=== PATIENT | female | born 1940 | race African-American/Black ===

== ENCOUNTER 2019-03-19 11:42 | Emergency (ER) | payer MEDICARE ==
[~2019-03-19] VITALS: Ht 170.2 cm; Wt 159.0 kg
[~2019-03-19 11:42] MED LIST: ASPI-1393 PO; HYDR-4009 PO; LORA0.5T2 PO
[2019-03-19] MEDS ORDERED: ONDANSETRON HCL 4MG/2ML INJ IV STA (14:57)
[2019-03-19] MEDS ORDERED: KETOROLAC 30MG/ML VIAL IV STA (14:57)
[2019-03-19] MEDS ORDERED: SODIUM CHLORIDE 0.9% 1,000 ML IV ONE (14:57)
[2019-03-19] MEDS ORDERED: FAMOTIDINE 20MG/2ML VIAL IV ONE (15:00)
[2019-03-19 16:28] LABS: CHLORIDE 109 mEq/L (98-107); PROTHROMBIN TIME 10.8 sec (9.6-11.0)
[2019-03-19 16:35] LABS: ETHANOL BLOOD < 10 mg/dL
[2019-03-19 16:36] LABS: CLARITY URINE TURBID (CLEAR); COLOR URINE DARK YELLOW (YELLOW); KETONES URINE 1+ (NEGATIVE); LEUKOCYTE ESTERASE URINE NEGATIVE (NEGATIVE); NITRITE URINE NEGATIVE (NEGATIVE); OCCULT BLOOD URINE 3+ (NEGATIVE); PROTEIN URINE 2+ (NEGATIVE); SPECIFIC GRAVITY URINE 1.025 (1.005-1.030)
[2019-03-19 16:47] LABS: BASOPHILS % 0.4 % (0.0-2.0); EOSINOPHILS % 0.1 % (0.0-5.0); HEMATOCRIT. 44.5 % (36.0-48.0); HEMOGLOBIN. 14.5 g/dL (12.0-16.0); MEAN CORPUSCULAR HEMOGLOBIN 29.3 pg (28.0-32.0); MEAN CORPUSCULAR VOLUME 90.3 fL (81.0-99.0); MEAN PLATELET VOLUME 8.1 fl (7.4-10.4); MONOCYTES % 5.1 % (2.0-8.0); NEUTROPHILS % 80.4 % (40.0-76.0); PLATELET 248 x1000/uL (130-400); RED BLOOD CELL COUNT 4.92 mill/uL (4.2-5.4); RED CELL DISTRIBUTION WIDTH 13.9 % (11.6-14.6)
[2019-03-19 16:49] LABS: *AMPHETAMINES SCREEN URINE NEGATIVE (NEGATIVE); *BARBITURATES SCREEN URINE NEGATIVE (NEGATIVE); *BENZODIAZEPINES SCREEN URINE NEGATIVE (NEGATIVE); *COCAINE SCREEN URINE NEGATIVE (NEGATIVE); METHADONE URINE SCREEN NEGATIVE (NEGATIVE); OPIATES URINE SCREEN NEGATIVE (NEGATIVE)
[2019-03-19 16:50] LABS: CANNABINOID URINE SCREEN NEGATIVE (NEGATIVE); PHENCYCLIDINE URINE SCREEN NEGATIVE (NEGATIVE)
[2019-03-19 19:30] VITALS: BP 159/63
== END 2019-03-20 02:16 | disposition home or self-care (01) ==
LOC: ER 11:42
DX: R11.2 Nausea with vomiting, unspecified (principal); R19.7 Diarrhea, unspecified
CPT/HCPCS: 36415; 80053; 80305; 80320; 81003; 85025; 85610; 96361; 96374; 96375; 99283; J1885; J2405; J3490; J7030; G0480

== ENCOUNTER 2024-03-03 02:56 | Inpatient (IN) | payer MEDICARE ==
[~2024-03-03] VITALS: Ht 167.6 cm; Wt 91.6 kg
[~2024-03-03 02:56] MED LIST changes: -ASPI-1393 PO; +ASPI-1497 PO
[2024-03-03 06:16] LABS: BASOPHILS % 0.7 % (0.0-2.0); EOSINOPHILS % 0.9 % (0.0-5.0); HEMATOCRIT. 43.1 % (36.0-48.0); HEMOGLOBIN. 13.7 g/dL (12.0-16.0); LYMPHOCYTES % 22.2 % (20.0-50.0); MEAN CORPUSCULAR HEMOGLOBIN 29.6 pg (28.0-32.0); MEAN CORPUSCULAR HGB CONC 31.9 g/dL (31.0-37.0); MEAN PLATELET VOLUME 8.2 fl (7.4-10.4); MONOCYTES % 9.1 % (2.0-8.0); NEUTROPHILS % 67.1 % (40.0-76.0); PLATELET 234 x1000/uL (130-400); RED BLOOD CELL COUNT 4.64 mill/uL (4.2-5.4); RED CELL DISTRIBUTION WIDTH 14.9 % (11.6-14.6); WHITE BLOOD COUNT 6.5 x1000/uL (4.5-11.0)
[2024-03-03 06:35] LABS: CHLORIDE 110 mEq/L (98-107); POTASSIUM 4.1 mEq/L (3.5-5.1)
[2024-03-03 06:36] LABS: CARBON DIOXIDE 27 mEq/L (21-32); SODIUM 146 mEq/L (136-145)
[2024-03-03 06:37] LABS: CALCIUM 10.6 mg/dL (8.7-10.4)
[2024-03-03 06:42] LABS: CREATININE 0.4 mg/dL (0.6-1.0); GLUCOSE 99 mg/dL (70-105); UREA NITROGEN BLOOD 14 mg/dL (9-23)
[2024-03-03 06:43] LABS: AMMONIA < 17 uMol/L (<32)
[2024-03-03 06:44] LABS: ACETAMINOPHEN < 2 ug/mL (10-30)
[2024-03-03 07:42] LABS: ETHANOL BLOOD < 10 mg/dL (<10)
[2024-03-03 07:43] LABS: TROPONIN I HIGH SENSITIVITY 75 ng/L (3.0-34)
[2024-03-03] MEDS ORDERED: ACETAMINOPHEN 650MG/20.3ML UDC GT PRN (08:45)
[2024-03-03] MEDS ORDERED: LORAZEPAM 2MG/ML INJ IV PRN (08:45)
[2024-03-03] MEDS ORDERED: GUAIFENESIN 200MG/10ML SUGAR FREE UDC PO PRN (08:45)
[2024-03-03] MEDS ORDERED: DOCUSATE SODIUM 100MG CAPSULE PO PRN (08:45)
[2024-03-03] MEDS ORDERED: MAGNESIUM/ALUMINUM HYDROXIDE/SIMETHICONE 30ML UDC PO PRN (08:45)
[2024-03-03] MEDS ORDERED: IPRATROPIUM/ALBUTEROL 0.5-3(2.5)MG/3ML NEB HHN PRN (08:45)
[2024-03-03] MEDS ORDERED: ACETAMINOPHEN 325MG TABLET PO PRN (08:45)
[2024-03-03 08:50] VITALS: BP 144/78; PULSE 94; RESP 18; TEMP 35.2504
[2024-03-03] MEDS: THIAMINE HCL 100MG TABLET PO SCH (09:00)
[2024-03-03] MEDS: AMLODIPINE 5MG TABLET PO SCH (09:00)
[2024-03-03] MEDS: FOLIC ACID 1MG TABLET PO SCH (09:00)
[2024-03-03] MEDS ORDERED: HYDRALAZINE 20MG/ML VIAL IV PRN (10:30)
[2024-03-03] MEDS ORDERED: HYDRALAZINE 10 MG in SODIUM CHLORIDE 0.9% 49.5 ML IV PRN (10:30)
[2024-03-03 12:00] VITALS: BP 110/53; PULSE 86; RESP 19; TEMP 36.114; O2SAT 97
[2024-03-03] MEDS: SODIUM CHLORIDE 0.9% 1,000 ML IV SCH (12:21)
[2024-03-03] MEDS: ENOXAPARIN 40MG/0.4ML SYR SUBCUT SCH (12:25)
[2024-03-03 12:30] LABS: ALBUMIN 3.7 g/dL (3.2-4.8)
[2024-03-03] MEDS: HALOPERIDOL LACTATE 5MG/ML VIAL IM PRN (13:27)
[2024-03-03 13:44] LABS: VITAMIN B12 SERUM 336 pg/mL (211-911)
[2024-03-03 16:00] VITALS: BP 100/39; PULSE 83; RESP 19; TEMP 36.22512; O2SAT 100
[2024-03-03] MEDS: FAMOTIDINE 20MG/2ML VIAL IV SCH (17:14)
[2024-03-03 18:35] LABS: CREATINE KINASE 82 IU/L (34-145); PHOSPHORUS 2.8 mg/dL (2.5-4.9)
[2024-03-03 18:59] LABS: TROPONIN I HIGH SENSITIVITY 75 ng/L (3.0-34)
[2024-03-04] VITALS: BP 95/51; PULSE 102; RESP 18; TEMP 35.61396; O2SAT 99
[2024-03-04 02:59] LABS: CREATINE KINASE 81 IU/L (34-145)
[2024-03-04 03:08] LABS: TROPONIN I HIGH SENSITIVITY 48 ng/L (3.0-34)
[2024-03-04 08:00] VITALS: BP 133/34; PULSE 88; RESP 17; TEMP 36.3918; O2SAT 98
[2024-03-04 08:30] LABS: CALCIUM 9.9 mg/dL (8.7-10.4); CHLORIDE 112 mEq/L (98-107); POTASSIUM 4.1 mEq/L (3.5-5.1); SODIUM 146 mEq/L (136-145)
[2024-03-04 08:31] LABS: CARBON DIOXIDE 24 mEq/L (21-32)
[2024-03-04 08:36] LABS: BASOPHILS % 1.1 % (0.0-2.0); CREATININE 0.3 mg/dL (0.6-1.0); EOSINOPHILS % 1.8 % (0.0-5.0); GLUCOSE 80 mg/dL (70-105); HEMATOCRIT. 39.4 % (36.0-48.0); HEMOGLOBIN. 12.6 g/dL (12.0-16.0); LYMPHOCYTES % 29.7 % (20.0-50.0); MEAN CORPUSCULAR HEMOGLOBIN 29.8 pg (28.0-32.0); MEAN CORPUSCULAR HGB CONC 32.1 g/dL (31.0-37.0); MEAN PLATELET VOLUME 8.5 fl (7.4-10.4); MONOCYTES % 11.1 % (2.0-8.0); NEUTROPHILS % 56.3 % (40.0-76.0); PLATELET 247 x1000/uL (130-400); RED BLOOD CELL COUNT 4.24 mill/uL (4.2-5.4); RED CELL DISTRIBUTION WIDTH 15.2 % (11.6-14.6); TRIGLYCERIDE 97 mg/dL (0-150); UREA NITROGEN BLOOD 12 mg/dL (9-23); WHITE BLOOD COUNT 6.7 x1000/uL (4.5-11.0)
[2024-03-04 08:37] LABS: LDL CHOLESTEROL 124 mg/dL (5-100)
[2024-03-04 08:38] LABS: CHOLESTEROL 184 mg/dL (<200); HDL CHOLESTEROL 39 mg/dL (>65)
[2024-03-04 08:42] LABS: THYROID STIMULATING HORMONE 3.16 uIU/mL (0.55-4.78)
[2024-03-04] MEDS ORDERED: SODIUM CHLORIDE 0.45% 1,000 ML IV SCH (09:00)
[2024-03-04 09:18] LABS: TROPONIN I HIGH SENSITIVITY 55 ng/L (3.0-34)
[2024-03-04 12:00] VITALS: BP 138/61; PULSE 89; RESP 18; TEMP 35.89176; O2SAT 98
[2024-03-04] MEDS: ASPIRIN 81MG TABLET PO SCH (12:44)
[2024-03-04] MEDS: DEXT 5%/0.45% NACL 1000ML 1,000 ML IV SCH (13:00)
[2024-03-04] MEDS: AMLODIPINE 10MG TABLET PO SCH (13:12)
[2024-03-04 16:00] VITALS: BP 120/41; PULSE 85; RESP 17; TEMP 36.00288; O2SAT 100
[2024-03-04 20:00] VITALS: BP 145/63; PULSE 87; RESP 18; TEMP 36.50292; O2SAT 98
[2024-03-04] MEDS: ATORVASTATIN CALCIUM 40MG TABLET PO SCH (21:52)
[2024-03-05] VITALS: BP 158/72; PULSE 90; RESP 18; TEMP 36.61404; O2SAT 97
[2024-03-05 08:00] VITALS: BP 141/66; PULSE 101; RESP 21; TEMP 36.72516; O2SAT 97
[2024-03-05 09:07] LABS: HEMATOCRIT 39.6 % (36.0-48.0); HEMOGLOBIN 12.6 g/dL (12.0-16.0); MEAN CORPUSCULAR HEMOGLOBIN 29.4 pg (28.0-32.0); MEAN CORPUSCULAR HGB CONC 31.7 g/dL (31.0-37.0); MEAN CORPUSCULAR VOLUME 92.8 fL (81.0-99.0); PLATELET 240 x1000/uL (130-400); RED BLOOD CELL COUNT 4.27 mill/uL (4.2-5.4); RED CELL DISTRIBUTION WIDTH 14.7 % (11.6-14.6); WHITE BLOOD COUNT 5.8 x1000/uL (4.5-11.0)
[2024-03-05 09:13] LABS: CARBON DIOXIDE 23 mEq/L (21-32); CHLORIDE 110 mEq/L (98-107); POTASSIUM 3.6 mEq/L (3.5-5.1); SODIUM 143 mEq/L (136-145)
[2024-03-05 09:14] LABS: CALCIUM 9.7 mg/dL (8.7-10.4)
[2024-03-05 09:19] LABS: GLUCOSE 144 mg/dL (70-105); UREA NITROGEN BLOOD 9 mg/dL (9-23)
[2024-03-05 09:27] LABS: CREATININE 0.4 mg/dL (0.6-1.0)
[2024-03-05 12:00] VITALS: BP 127/59; PULSE 79; RESP 20; TEMP 36.72516; O2SAT 99
[2024-03-05 16:00] VITALS: BP 116/50; PULSE 86; RESP 19; TEMP 36.83628; O2SAT 97
[2024-03-05 20:00] VITALS: BP 136/61; PULSE 88; RESP 18; TEMP 36.50292; O2SAT 98
[2024-03-05] MEDS: MIRTAZAPINE 15MG TABLET PO SCH (20:56)
[2024-03-06] VITALS: BP 104/81; PULSE 70; RESP 18; TEMP 36.3918; O2SAT 95
[2024-03-06 08:00] VITALS: BP 145/74; PULSE 67; RESP 18; TEMP 35.72508; O2SAT 99
[2024-03-06 12:00] VITALS: BP 102/53; PULSE 65; RESP 19; TEMP 35.61396; O2SAT 98
[2024-03-06 16:00] VITALS: PULSE 56; RESP 19; TEMP 35.61396; O2SAT 98
[2024-03-06 20:00] VITALS: BP 146/67; PULSE 66; RESP 18; TEMP 36.3918; O2SAT 95
[2024-03-06 22:13] LABS: CLARITY URINE TURBID (CLEAR); COLOR URINE YELLOW (YELLOW); GLUCOSE URINE NEGATIVE (NEGATIVE); KETONES URINE NEGATIVE (NEGATIVE); LEUKOCYTE ESTERASE URINE 3+ (NEGATIVE); NITRITE URINE POSITIVE (NEGATIVE); OCCULT BLOOD URINE 1+ (NEGATIVE); PH URINE 6.5 (4.5-8.0); PROTEIN URINE NEGATIVE (NEGATIVE); SPECIFIC GRAVITY URINE 1.003 (1.005-1.030); UROBILINOGEN URINE 0.2 E.U./dL (0.2-1.0)
[2024-03-06 22:35] LABS: BACTERIA URINE 4+; SQUAMOUS EPITHELIAL CELL URINE 1+ /lpf (RARE/1+)
[2024-03-06 22:36] LABS: WBC URINE 25-50 /hpf (0-2)
[2024-03-07] VITALS: BP 145/70; PULSE 85; RESP 18; TEMP 35.8362; O2SAT 100
[2024-03-07 07:59] LABS: EOSINOPHILS % 2.6 % (0.0-5.0); HEMATOCRIT. 39.5 % (36.0-48.0); HEMOGLOBIN. 12.8 g/dL (12.0-16.0); LYMPHOCYTES % 18.9 % (20.0-50.0); MEAN CORPUSCULAR HEMOGLOBIN 29.8 pg (28.0-32.0); MEAN CORPUSCULAR HGB CONC 32.3 g/dL (31.0-37.0); MEAN CORPUSCULAR VOLUME 92.5 fL (81.0-99.0); MEAN PLATELET VOLUME 8.6 fl (7.4-10.4); MONOCYTES % 8.4 % (2.0-8.0); NEUTROPHILS % 69.1 % (40.0-76.0); PLATELET 215 x1000/uL (130-400); RED BLOOD CELL COUNT 4.27 mill/uL (4.2-5.4); RED CELL DISTRIBUTION WIDTH 14.6 % (11.6-14.6); WHITE BLOOD COUNT 6.2 x1000/uL (4.5-11.0)
[2024-03-07 08:00] VITALS: BP 154/76; PULSE 87; RESP 18; TEMP 36.16956; O2SAT 98
[2024-03-07 08:01] LABS: CARBON DIOXIDE 27 mEq/L (21-32); CHLORIDE 113 mEq/L (98-107); POTASSIUM 3.3 mEq/L (3.5-5.1); SODIUM 147 mEq/L (136-145)
[2024-03-07 08:02] LABS: CALCIUM 9.6 mg/dL (8.7-10.4)
[2024-03-07 08:07] LABS: CREATININE 0.3 mg/dL (0.6-1.0); GLUCOSE 100 mg/dL (70-105); UREA NITROGEN BLOOD 7 mg/dL (9-23)
[2024-03-07] MEDS ORDERED: MEROPENEM 1,000 MG in SODIUM CHLORIDE 0.9% 100 ML IV SCH (09:30)
[2024-03-07 12:00] VITALS: BP 106/49; PULSE 51; RESP 19; TEMP 35.39172; O2SAT 99
[2024-03-07 16:00] VITALS: BP 109/49; PULSE 51; RESP 17; TEMP 35.61396; O2SAT 98
[2024-03-07 20:00] VITALS: BP 127/55; PULSE 56; PULSE 62; RESP 19; TEMP 37.05852; O2SAT 99
[2024-03-07] MEDS: MEROPENEM 1G/100ML IV SCH (22:48)
[2024-03-08] VITALS (7 sets, daily range): BP systolic 101–132; BP diastolic 44–60; PULSE 51–87; RESP 18–20; TEMP 35.50284–37.11408; O2SAT 98–100
[2024-03-08] MEDS: MEROPENEM 1GM/50ML DUPLEX 50 ML IV SCH (09:19)
== END 2024-03-08 20:30 | DRG 689 ==
LOC: ER 02:56 → 6EST 04:51
PROVIDERS: ADMIT Hospitalist; ATTEND Hospitalist
DX: N39.0 Urinary tract infection, site not specified (principal); G93.41 Metabolic encephalopathy; E87.0 Hyperosmolality and hypernatremia; E83.52 Hypercalcemia; F03.90 Unspecified dementia, unspecified severity, without behavioral disturbance, psychotic disturbance, mood disturbance, and anxiety; I10 Essential (primary) hypertension; I44.7 Left bundle-branch block, unspecified; R41.0 Disorientation, unspecified; B96.20 Unspecified Escherichia coli [E. coli] as the cause of diseases classified elsewhere; F32.9 Major depressive disorder, single episode, unspecified; F32.A Depression, unspecified; R79.89 Other specified abnormal findings of blood chemistry; Z74.01 Bed confinement status; Z86.73 Personal history of transient ischemic attack (TIA), and cerebral infarction without residual deficits; R62.7 Adult failure to thrive; Z68.32 Body mass index [BMI] 32.0-32.9, adult
CPT/HCPCS: 36415; 71045; 80048; 80061; 80307; 80320; 80329; 81003; 82040; 82140; 82550; 82607; 83605; 83735; 83930; 84100; 84443; 84484; 85025; 85027; 93005; 97162; 97165; 99285; J1630; J1650; J2185; J3490; J7030; G0480